=== PATIENT | male | born 1935 | race Caucasian/White ===

== ENCOUNTER 2016-12-15 10:36 | Emergency (ER) | payer MEDICARE, OTHER ==
[2016-12-15 10:58] VITALS: BP 145/83
--- NOTE | 2016-12-15 11:25 | EDM.PDOC ---
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 Pt was seen approx 2 weeks ago in the clinic and was given a zpak for presumptive bronchitis. He feels that medication did not help. Pt denies any dizziness, diaphoresis, blurred vision, chills, fevers, or vomiting. Onset: Gradual Onset Date: 12/03/16 Duration: Getting Worse Location: Reports: Chest, Upper Extremity, Right Quality: Reports: Ache Severity: Moderate Improves with: Reports: Rest Worsens with: Reports: Movement (or laying flat) Associated Symptoms: Reports: No Other Symptoms, Cough, cough w sputum, Shortness of Breath. 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 Denies: Blood Pressure Problem, Claudication, Edema, Lightheadedness, Palpitations Endocrine: Reports: Fatigue. Denies: Polydypsia, Polyuria GI/Abdominal: Reports: No Symptoms : Reports: No Symptoms Musculoskeletal: Reports: No Symptoms Skin: Reports: No Symptoms Neurological: Reports: No Symptoms Psychiatric: Reports: No Symptoms Hematologic/Lymphatic: Reports: No Symptoms Immunologic: Reports: No Symptoms ED EXAM, GENERAL - Physical Exam Exam: See Below Exam Limited By: No Limitations General Appearance: Alert, WD/WN, No Apparent Distress Eye Exam: Bilateral Eye: PERRL Head: Atraumatic, Normocephalic Neck: Normal Inspection, Supple, Non-Tender, Full Range of Motion Respiratory/Chest: Decreased Breath Sounds (right side lower lobe ), Crackles ( right side), Accessory Muscle Use. No: Respiratory Distress, Stridor, Pleural Rub, Retractions, Splinting, Prolonged Expiration Cardiovascular: Normal Peripheral Pulses, No Edema, No JVD, No Murmur, No Rub EKG INTERPRETATION EKG Date: 12/15/16 Time: 11:06 Rhythm: Other (sinus arrhythmia) [place]: LAD-Left [place] Deviation P-Wave: Present QRS: Wide ST-T: Normal QT: Normal Comparison: NA - No Prior EKG Course - Vital Signs Last Recorded V/S: Last Vital Signs Temp 36.1 C 12/15/16 10:51 Pulse 90 12/15/16 10:51 Resp 24 H 12/15/16 10:51 BP 145/83 H 12/15/16 10:51 Pulse Ox 94 L 12/15/16 10:51 - Orders/Labs/Meds Orders: Active Orders 24 hr Category Date Time Status Chest 1V Frontal [CR] Stat Exams 12/15/16 11:13 Taken Labs: Laboratory Tests 12/15/16 12/15/16 12/15/16 Range/Units 11:25 11:25 11:36 WBC 6.0 (4.0-10.0) x10^3/uL RBC 4.73 (4.5-6.0) x10^6/uL Hgb 13.6 L (14.0-18.0) g/dL Hct 41.7 (40.0-52.0) % MCV 88.2 (78.0-93.0) fL MCH 28.8 (26.0-32.0) pg MCHC 32.6 (32.0-36.0) g/dL RDW Coeff of Rashaad 14.1 (10.0-15.0) % Plt Count 277 (130-400) x10^3/uL Neut % (Auto) 69.4 (50.0-80.0) % Lymph % (Auto) 13.1 L (25.0-50.0) % [place] % (Auto) 11.3 H (2.0-11.0) % Eos % (Auto) 5.5 H (0.0-4.0) % Baso % (Auto) 0.7 (0.2-1.2) % Sodium 141 (136-145) mmol/L Potassium 4.1 (3.5-5.1) mmol/L Chloride 105 (98-107) mmol/L Carbon Dioxide 32 (21-32) mmol/L BUN 20 H (7-18) mg/dL Creatinine 1.0 (0.70-1.30) mg/dL Est Cr Clr Drug Dosing 59.90 mL/min Estimated GFR (MDRD) > 60 Glucose 92 (74-106) mg/dL Calcium 8.6 (8.5-10.1) mg/dL Corrected Calcium 9.56 (8.5-10.1) mg/dL Total Bilirubin 0.3 (0.2-1.0) mg/dL AST 14 L (15-37) U/L ALT 17 (16-63) U/L Alkaline Phosphatase 89 (46-116) U/L Creatine Kinase 85 (39-308) U/L Creatine Kinase Index TNP CK-MB (CK-2) TNP POC Troponin I 0.00 (0.00-0.08) ng/mL NT-Pro-B Natriuret Pep 167 (<=450) pg/mL Total Protein 7.2 (6.4-8.2) g/dL Albumin 2.8 L (3.4-5.0) g/dL Globulin 4.4 Albumin/Globulin Ratio 0.64 Meds: Medications Discontinued Medications Generic Name Dose Route Start Last Admin Trade Name Freq PRN Reason Stop Dose Admin Doxycycline Hyclate 100 mg 12/15/16 12:11 Vibramycin PO 12/15/16 12:12 ONETIME ONE Departure - Departure Time of Disposition: 12:02 Disposition: Home, Self-Care 01 Condition: Good Clinical Impression: Pneumonia Qualifiers: Pneumonia type: due to unspecified organism Laterality: right Lung location: lower lobe of lung Qualified Code(s): J18.1 - Lobar pneumonia, unspecified organism - Discharge Information Prescriptions: Doxycycline [Vibramycin] 100 mg PO Q12HR 14 Days #28 tablet Instructions: Community-Acquired Pneumonia, Adult, [id number], Shortness of Breath, [id number] Referrals: Mirna Solano DO [Primary Care Provider] - 3 Days Forms: ED Department Discharge Care Plan Goals: Pt is advised to take medications as prescribed Sleep with head elevated for the next couple days to help support his SOB If the SOB gets worse or develops chest pain he is advised to report to the ER immediately Take medications with food and drink plenty of water If fever or discomfort is present pt is advised to take Tylenol or Ibuprofen as needed. Education provided at the bedside Follow up with PCP in 3 days - My Orders Last 24 Hours: My Active Orders 12/15/16 11:13 Chest 1V Frontal [CR] Stat - Assessment/Plan Last 24 Hours: My Active Orders 12/15/16 11:13 Chest 1V Frontal [CR] Stat
[2016-12-15 12:05] LABS: CHLORIDE,CL 105 mmol/L (98-107); SODIUM,NA 141 mmol/L (136-145)
[2016-12-15] MEDS ORDERED: Doxycycline 100 MG Cap PO ONE (12:11)
== END 2016-12-15 12:24 | disposition home or self-care (01) ==
LOC: VM.ED 10:36
DX: J18.9 Pneumonia, unspecified organism (principal)
CPT/HCPCS: 36415; 71010; 80053; 82550; 83880; 84484; 85025; 93005; 99284; 99285; A9270

== ENCOUNTER 2017-02-23 16:46 | Inpatient (IN) | payer MEDICARE, OTHER ==
[2017-02-25] MEDS: IPRATROPIUM NEB SCH ×2 (14:42→20:54)
[2017-02-25] MEDS: ALBUTEROL NEB SCH ×2 (14:42→20:54)
[2017-02-25] MEDS ORDERED: Albuterol 8 GM Inhaler INH PRN (16:40)
[2017-02-25] MEDS ORDERED: Prochlorperazine 5 MG Tab PO PRN (16:40)
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
[2017-02-25] MEDS: Potassium Chloride 20 MEQ Tab.ER PO SCH (17:43)
[2017-02-25] MEDS ORDERED: Albuterol/Ipratropium 3.0-0.5 MG/3 ML Neb Soln NEB SCH (20:00)
[2017-02-25] MEDS: Tamsulosin 0.4 MG Cap.ER PO SCH (20:54)
[2017-02-25] MEDS: Acetaminophen 325 MG Tab PO PRN (22:25)
[2017-02-26] MEDS: Acetaminophen 325 MG Tab PO PRN ×2 (04:10→20:39)
[2017-02-26] MEDS: ALBUTEROL NEB SCH ×4 (07:03→20:39)
[2017-02-26] MEDS: IPRATROPIUM NEB SCH ×4 (07:03→20:39)
[2017-02-26] MEDS ORDERED: Dexamethasone 4 MG Tab PO SCH (08:00)
[2017-02-26] MEDS ORDERED: Docusate Sodium 100 MG Cap PO SCH (08:00)
[2017-02-26] MEDS: Aspirin 81 MG Tab.EC PO SCH (08:20)
[2017-02-26] MEDS: Potassium Chloride 20 MEQ Tab.ER PO SCH ×2 (08:21→18:10)
[2017-02-26] MEDS: Folic Acid 1 MG Tab (OWN SUPPLY) PO SCH (08:21)
[2017-02-26] MEDS: Furosemide 20 MG Tab PO SCH (08:22)
[2017-02-26] MEDS: traZODone 50 MG Tab PO SCH (20:39)
[2017-02-26] MEDS: Tamsulosin 0.4 MG Cap.ER PO SCH (20:39)
[2017-02-27] MEDS: IPRATROPIUM NEB SCH ×4 (07:11→21:56)
[2017-02-27] MEDS: ALBUTEROL NEB SCH ×4 (07:11→21:56)
[2017-02-27] MEDS: Furosemide 20 MG Tab PO SCH (07:50)
[2017-02-27] MEDS: Aspirin 81 MG Tab.EC PO SCH (07:50)
[2017-02-27] MEDS: Folic Acid 1 MG Tab (OWN SUPPLY) PO SCH (07:50)
[2017-02-27] MEDS: Potassium Chloride 20 MEQ Tab.ER PO SCH (07:51)
[2017-02-27 09:22] LABS: CHLORIDE,CL 101 mmol/L (98-107); SODIUM,NA 139 mmol/L (136-145)
[2017-02-27] MEDS: oxyCODONE 5 MG Tab PO PRN ×2 (09:49→17:06)
[2017-02-27] MEDS ORDERED: Enoxaparin 40 MG/0.4 ML Syringe SUBCUT SCH (13:00)
--- NOTE | 2017-02-27 13:23 | PN ---
Progress Note for CHARLY SOLIMAN Date: 02/27/2017 Room #: VM.206 SUBJECTIVE: This is a 81-year-old with lung cancer, on swing bed after an acute stay for cellulitis versus a chemo reaction with lower extremity redness and swelling. The swelling is significantly improved. The pain is better. He still has pain off and on in his right chest wall area, which he has had since being diagnosed with lung cancer. He otherwise has been eating a 100% of his meals here, but had lost considerable weight prior. He had not been getting oxycodone but is requesting something stronger than Tylenol for his pain. He denies shortness of breath, but he continues to require oxygen. He has a Lin in place which is working. No fevers, no chills. OBJECTIVE: Vital Signs: His temperature 98, pulse 94, blood pressure 129/67, respiratory rate 19, and O2 sat of 93% on 2 L. General: He is in no acute distress. Heart: Regular rate and rhythm. Lungs: Sounds are decreased over the right base, but otherwise no crackles or wheezes. Abdomen: Nondistended, nontender. : Lin in place. Prostate exam performed. Prostate is enlarged but there are no nodules. Extremities: There is still some redness to his legs and minimal warmth. We removed the SCDs. The swelling is nearly resolved. ASSESSMENT: 1. Lung cancer stage IV, metastatic to the pleural fluid. He is status post 1 treatment with chemo. He will be evaluated in the next week for improved overall condition to see if he is a candidate for chemo again. We did lab work today, which looked good. 2. Chronic obstructive pulmonary disease, chronic without exacerbation on nebulizers. 3. Deconditioning and working with therapies. He is asking to get up and walk more with nursing in the hallways. We discussed this that we would work on that also today. 4. Moderate malnutrition due to cancer. He is eating a 100% of his meals. 5. 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 We are going to start some Remeron. 6. Urinary retention due to benign prostatic hypertrophy. He is on Flomax now. The Lin will be left in place. We will look on removing that Saturday for a voiding trial. 7. 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 His hemoglobin today is improved up to 9.5. 8. Deep vein thrombosis prophylaxis. He had been on a SCDs, but now with a stable hemoglobin, I am going to start Lovenox. PLAN: At this point, the patient is to continue swing bed cares. We will restart oxycodone for pain control. We will continue the Lin. We will start Lovenox for DVT prophylaxis. He will continue working with PT. He has declined working with OT to do ADLs. MKA: 02/27/2017 12:56:09 MODL: 02/27/2017 13:15:07 /[id number]
[2017-02-27] MEDS: traZODone 50 MG Tab PO SCH (21:56)
[2017-02-27] MEDS: Enoxaparin 40 MG/0.4 ML Syringe SUBCUT SCH (21:56)
[2017-02-27] MEDS: Tamsulosin 0.4 MG Cap.ER PO SCH (21:56)
[2017-02-27] MEDS: Mirtazapine 15 MG Tab PO SCH (21:56)
[2017-02-28] MEDS: ALBUTEROL NEB SCH ×4 (07:03→20:16)
[2017-02-28] MEDS: IPRATROPIUM NEB SCH ×4 (07:03→20:16)
[2017-02-28] MEDS: Potassium Chloride 20 MEQ Tab.ER PO SCH (07:53)
[2017-02-28] MEDS: Folic Acid 1 MG Tab (OWN SUPPLY) PO SCH (07:53)
[2017-02-28] MEDS: Aspirin 81 MG Tab.EC PO SCH (07:53)
[2017-02-28] MEDS: oxyCODONE 5 MG Tab PO PRN ×2 (07:54→16:04)
[2017-02-28] MEDS: Furosemide 20 MG Tab PO SCH (07:55)
[2017-02-28] MEDS: traZODone 50 MG Tab PO SCH (20:16)
[2017-02-28] MEDS: Tamsulosin 0.4 MG Cap.ER PO SCH (20:16)
[2017-02-28] MEDS: Mirtazapine 15 MG Tab PO SCH (20:16)
[2017-02-28] MEDS: Enoxaparin 40 MG/0.4 ML Syringe SUBCUT SCH (20:23)
[2017-03-01] MEDS: ALBUTEROL NEB SCH ×4 (07:05→19:40)
[2017-03-01] MEDS: IPRATROPIUM NEB SCH ×4 (07:05→19:40)
[2017-03-01] MEDS: oxyCODONE 5 MG Tab PO PRN ×2 (08:41→18:17)
[2017-03-01] MEDS: Aspirin 81 MG Tab.EC PO SCH (08:42)
[2017-03-01] MEDS: Acetaminophen 325 MG Tab PO PRN ×2 (08:42→18:16)
[2017-03-01] MEDS: Furosemide 20 MG Tab PO SCH (08:43)
[2017-03-01] MEDS: Potassium Chloride 20 MEQ Tab.ER PO SCH (08:43)
[2017-03-01] MEDS: Folic Acid 1 MG Tab (OWN SUPPLY) PO SCH (08:43)
--- NOTE | 2017-03-01 13:19 | PCM.SN ---
- Free Text/Narrative Note: Patient waiting to go for a walk, discussed leaving the catheter in place until Saturday and then a voiding trial after that as he was recently started on Flomax. He states he is sleeping better he is on Trazodone and Remeron. He still has a poor appetite but is eating 50 % or better for his meals. He is due for an Oncology visit and labs on Saturday. Nursing is aware.
[2017-03-01] MEDS: Mirtazapine 15 MG Tab PO SCH (19:40)
[2017-03-01] MEDS: Tamsulosin 0.4 MG Cap.ER PO SCH (19:40)
[2017-03-01] MEDS: traZODone 50 MG Tab PO SCH (19:40)
[2017-03-01] MEDS: Enoxaparin 40 MG/0.4 ML Syringe SUBCUT SCH (21:12)
[2017-03-02] MEDS: IPRATROPIUM NEB SCH ×4 (07:03→19:42)
[2017-03-02] MEDS: ALBUTEROL NEB SCH ×4 (07:03→19:42)
[2017-03-02] MEDS: Acetaminophen 325 MG Tab PO PRN ×2 (07:27→15:05)
[2017-03-02] MEDS: Folic Acid 1 MG Tab (OWN SUPPLY) PO SCH (07:28)
[2017-03-02] MEDS: Aspirin 81 MG Tab.EC PO SCH (07:28)
[2017-03-02] MEDS: Furosemide 20 MG Tab PO SCH (07:28)
[2017-03-02] MEDS: Potassium Chloride 20 MEQ Tab.ER PO SCH (07:28)
[2017-03-02] MEDS: oxyCODONE 5 MG Tab PO PRN ×2 (07:28→15:05)
[2017-03-02] MEDS: Enoxaparin 40 MG/0.4 ML Syringe SUBCUT SCH ×2 (19:41→20:45)
[2017-03-02] MEDS: Mirtazapine 15 MG Tab PO SCH (19:42)
[2017-03-02] MEDS: Tamsulosin 0.4 MG Cap.ER PO SCH (19:42)
[2017-03-02] MEDS: traZODone 50 MG Tab PO SCH (19:42)
[2017-03-03] MEDS: oxyCODONE 5 MG Tab PO PRN ×2 (06:14→17:16)
[2017-03-03] MEDS: Acetaminophen 325 MG Tab PO PRN ×2 (06:15→17:17)
[2017-03-03] MEDS: IPRATROPIUM NEB SCH ×4 (07:03→21:59)
[2017-03-03] MEDS: ALBUTEROL NEB SCH ×4 (07:03→21:59)
[2017-03-03] MEDS: Folic Acid 1 MG Tab (OWN SUPPLY) PO SCH (07:54)
[2017-03-03] MEDS: Potassium Chloride 20 MEQ Tab.ER PO SCH (07:54)
[2017-03-03] MEDS: Aspirin 81 MG Tab.EC PO SCH (07:54)
[2017-03-03] MEDS: Furosemide 20 MG Tab PO SCH (07:54)
[2017-03-03] MEDS: Enoxaparin 40 MG/0.4 ML Syringe SUBCUT SCH (21:59)
[2017-03-03] MEDS: traZODone 50 MG Tab PO SCH (22:00)
[2017-03-03] MEDS: Mirtazapine 15 MG Tab PO SCH (22:00)
[2017-03-03] MEDS: Tamsulosin 0.4 MG Cap.ER PO SCH (22:00)
[2017-03-04] MEDS: ALBUTEROL NEB SCH ×4 (06:57→20:09)
[2017-03-04] MEDS: IPRATROPIUM NEB SCH ×4 (06:57→20:09)
[2017-03-04] MEDS: Furosemide 20 MG Tab PO SCH (07:47)
[2017-03-04] MEDS: Potassium Chloride 20 MEQ Tab.ER PO SCH (07:47)
[2017-03-04] MEDS: Aspirin 81 MG Tab.EC PO SCH (07:47)
[2017-03-04] MEDS: Folic Acid 1 MG Tab (OWN SUPPLY) PO SCH (07:47)
[2017-03-04] MEDS: oxyCODONE 5 MG Tab PO PRN ×2 (07:53→17:22)
[2017-03-04] MEDS: Albuterol 0.083% 2.5 MG/3 ML Neb Soln NEB PRN (12:37)
[2017-03-04] MEDS: Acetaminophen 325 MG Tab PO PRN ×2 (17:22→21:38)
[2017-03-04] MEDS: Tamsulosin 0.4 MG Cap.ER PO SCH (20:08)
[2017-03-04] MEDS: Mirtazapine 15 MG Tab PO SCH (20:09)
[2017-03-04] MEDS: traZODone 50 MG Tab PO SCH (20:09)
[2017-03-04] MEDS: Enoxaparin 40 MG/0.4 ML Syringe SUBCUT SCH (20:17)
[2017-03-05] MEDS: oxyCODONE 5 MG Tab PO PRN ×2 (04:31→20:36)
[2017-03-05] MEDS: ALBUTEROL NEB SCH ×4 (07:13→20:35)
[2017-03-05] MEDS: IPRATROPIUM NEB SCH ×4 (07:13→20:35)
[2017-03-05] MEDS: Potassium Chloride 20 MEQ Tab.ER PO SCH (07:57)
[2017-03-05] MEDS: Folic Acid 1 MG Tab (OWN SUPPLY) PO SCH (07:57)
[2017-03-05] MEDS: Aspirin 81 MG Tab.EC PO SCH (07:58)
[2017-03-05] MEDS: Furosemide 20 MG Tab PO SCH (07:58)
[2017-03-05 09:30] LABS: CHLORIDE,CL 101 mmol/L (98-107); SODIUM,NA 138 mmol/L (136-145)
--- NOTE | 2017-03-05 09:30 | PN ---
Progress Note for CHARLY SOLIMAN Date: 03/05/2017 Room #: VM.206 SUBJECTIVE: This is a 81-year-old seen on swing bed with stage IV lung cancer, metastatic to the pleura. He states his breathing and cough are okay, but he still has some hip pain from when he fell and came into the ER, which was over a week ago. He has had a low-grade fever since yesterday. He denies any burning with urination or abdominal pain, but he has a Lin catheter in place. It would have been removed yesterday, but he was traveling to [place] for Oncology appointments, and he tells me he is not going to do any further chemo. OBJECTIVE: Vital Signs: His temperature currently is 98.3. Pulse 111, he has been up to 120. He has had tachycardia over 100 for the last several months ever since he has been diagnosed with cancer. Blood pressure 113/56, respiratory rate 22, and O2 97% on 3 L. General: He is in no acute distress. Heart: Regular rate and rhythm. Lungs: Sounds are decreased over the right base with rhonchi, otherwise left base is clear. Abdomen: Positive bowel sounds. Soft and nontender. Extremities: Warm and dry. No edema. Mental Status: Alert and orientated x3. He is eating 100% of his meals. His leg swelling that he had before is much improved. His in's and out's are matching. ASSESSMENT AND PLAN: 1. Metastatic lung cancer to the pleura, stage IV, status post one round of chemotherapy with complications of cellulitis and leg swelling. This has now improved. The patient has decided not to continue further chemo. He has also agreed to go code 2 status. 2. Chronic obstructive pulmonary disease, chronic and stable, without exacerbation. 3. Deconditioning. He is up, and he is working with therapies. 4. Deep vein thrombosis prophylaxis. He is on Lovenox. 5. Moderate malnutrition due to cancer. He is eating well. 6. 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 He is on Remeron. 7. Urinary retention due to benign prostatic hyperplasia. He has been on Flomax now for the last week. We will remove the Lin for a voiding trial. 8. 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 We will repeat a hemoglobin today. 9. Low-grade fevers. We will check a UA. We will check a white count. I am going to hold off on any x-rays, unless he has worsening lung symptoms. At this point, the patient will continue swing bed cares. He was switched over to code 3 status after discussion with him. We will try to get him to the point where he is up and moving around and able to go back home. Otherwise, if he is not, we may be looking at [facility] care or even hospice. Lab work will be done today. MKA: 03/05/2017 08:50:40 MODL: 03/05/2017 09:17:09 /[id number] MARY
[2017-03-05] MEDS: Acetaminophen 325 MG Tab PO PRN (20:35)
[2017-03-05] MEDS: Tamsulosin 0.4 MG Cap.ER PO SCH (20:35)
[2017-03-05] MEDS: Enoxaparin 40 MG/0.4 ML Syringe SUBCUT SCH (20:35)
[2017-03-05] MEDS: traZODone 50 MG Tab PO SCH (20:36)
[2017-03-05] MEDS: Mirtazapine 15 MG Tab PO SCH (20:36)
[2017-03-06] MEDS: oxyCODONE 5 MG Tab PO PRN ×4 (02:00→21:50)
[2017-03-06] MEDS: ALBUTEROL NEB SCH ×4 (07:12→21:50)
[2017-03-06] MEDS: IPRATROPIUM NEB SCH ×4 (07:12→21:50)
[2017-03-06] MEDS: Acetaminophen 325 MG Tab PO PRN ×3 (07:49→21:51)
[2017-03-06] MEDS: Potassium Chloride 20 MEQ Tab.ER PO SCH (07:50)
[2017-03-06] MEDS: Aspirin 81 MG Tab.EC PO SCH (07:50)
[2017-03-06] MEDS: Folic Acid 1 MG Tab (OWN SUPPLY) PO SCH (07:50)
[2017-03-06] MEDS: Finasteride 5 MG Tab PO SCH (08:54)
--- NOTE | 2017-03-06 17:35 | PN ---
Progress Note for CHARLY SOLIMAN Date: 03/06/2017 Room #: VM.206 SUBJECTIVE: This is a 81-year-old on swing bed recovering after an acute stay for cellulitis with complications after chemotherapy. The patient saw his oncologist earlier this week. He has declined further treatments even though they were going to give him some reduced dosing. His lab work yesterday did show his anemia to have worsened down to 7.2, but it was stable this morning at 7.3. He has a mild elevation of white count of 10.4. He had some low-grade fevers on Saturday. This afternoon, around 3:30, he spiked to 102.5 temperature. He has been coughing more, but his sputum has been white and clear. He has a known right lung mass with malignant effusion. He denies any increased shortness of breath and his oxygen saturations are actually improved, but he has been requiring oxygen, which is not new, that has been throughout his hospitalization. He also failed his voiding trial yesterday and had to have his Lin reinserted. He had a UA done that was negative for any infection. His kidney function was good yesterday. OBJECTIVE: Vital Signs: Again, T-max was at that 102.5, pulse 112, blood pressure 110/58, respiratory rate 18, O2 95% on room air. General: He is in no acute distress. Heart: Regular rate and rhythm. Lungs: Sounds show decreased air entry and crackles noted in both bases, but worse crackles in the left base and more decreased sounds over the right base. Abdomen: Nondistended, nontender. Genitalia: Penis is examined. There is some whitish drainage around the Lin. The Lin is in place. There is no redness or warmth. There is some dark to alexadnru colored urine in his Lin bag. Extremities: Warm and dry. No edema. Mental Status: He is alert and orientated x3. Overall, he does seem depressed. ASSESSMENT: 1. Fever with cough, known lung cancer. This is probably pneumonia. That is how he was initially diagnosed. I am going to empirically start him on Augmentin. We will get a chest x-ray as well. 2. Chronic obstructive pulmonary disease, chronic. He is on nebulizers. 3. Deconditioning. He is working with therapies. 4. Deep vein thrombosis prophylaxis. He is still on Lovenox. 5. 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 He is eating 100% of his meals, but he has still lost weight. 6. 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 He is on Remeron. 7. Urinary retention with benign prostatic hyperplasia. He has Lin back in place. We have him on Flomax. I am going to start him on Proscar and try another voiding trial in a week. If blood pressures come up further, I might increase Flomax also to 0.8. 8. 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 We will transfuse if hemoglobin goes below 7. I will repeat Saturday. PLAN: The patient will continue swing bed cares. We discussed that if he is declining to pursue further aggressive treatments, that he is not going to recover, he is likely not going to get better and he understands that his cancer is a terminal condition. He would like to stay here at the hospital if possible, but he did not want to talk to the community mental health social worker. I believe he was concerned about going to the pen[facility], which he absolutely opposes. I do not think he is going to be able to go home unless he has significant family support and with hospice, but at this point, he is still working with therapies. If his condition deteriorates and worsens, then he will go on full comfort cares. He does not want to be transferred back to [place] for aggressive treatments and I think that is appropriate. For now, we are going to start Augmentin. We are going to get a chest x-ray. I will repeat his lab work in a couple days. I will continue DVT prophylaxis. MKA: 03/06/2017 17:07:14 MODL: 03/06/2017 17:27:44 /[id number]
[2017-03-06] MEDS: Amoxicillin/Clavulanate K 875-125 MG Tab PO SCH ×2 (18:17→21:49)
[2017-03-06] MEDS: Nystatin Crm 30 GM Tube TOP SCH ×2 (21:48→21:51)
[2017-03-06] MEDS: Tamsulosin 0.4 MG Cap.ER PO SCH (21:49)
[2017-03-06] MEDS: traZODone 50 MG Tab PO SCH (21:50)
[2017-03-06] MEDS: Mirtazapine 15 MG Tab PO SCH (21:50)
[2017-03-07] MEDS: Enoxaparin 40 MG/0.4 ML Syringe SUBCUT SCH ×2 (00:23→20:21)
[2017-03-07] MEDS: ALBUTEROL NEB SCH ×4 (07:03→20:20)
[2017-03-07] MEDS: IPRATROPIUM NEB SCH ×4 (07:03→20:20)
[2017-03-07] MEDS: Aspirin 81 MG Tab.EC PO SCH (08:12)
[2017-03-07] MEDS: Folic Acid 1 MG Tab (OWN SUPPLY) PO SCH (08:12)
[2017-03-07] MEDS: Finasteride 5 MG Tab PO SCH (08:12)
[2017-03-07] MEDS: Nystatin Crm 30 GM Tube TOP SCH ×2 (08:13→20:20)
[2017-03-07] MEDS: Amoxicillin/Clavulanate K 875-125 MG Tab PO SCH ×2 (08:13→20:20)
[2017-03-07] MEDS: Potassium Chloride 20 MEQ Tab.ER PO SCH (08:13)
--- NOTE | 2017-03-07 09:50 | PN ---
Progress Note for CHARLY SOLIMAN Date: 03/07/2017 Room #: VM.206 SUBJECTIVE: This is a 81-year-old on swing bed with stage IV lung cancer due to some deconditioning and weakness after chemo, which resulted in bilateral leg redness and swelling. He completed some treatments for cellulitis. His leg swelling is slightly coming back. It is also tender again. He has been on Lovenox for DVT prophylaxis. He has also had SCDs when in bed. Otherwise, he had been on Lasix, but he had stopped it a few days ago due to concerns for some dehydration with poor oral intake. He also spiked a fever of 102.5 yesterday, had an x-ray showing some increase in right lung infiltrate that is where he has his known cancer. He has continuous pain in that area and does take some oxycodone. He does not feel like his cough or his breathing are any worse today. He was started on Augmentin. He has been afebrile overnight. He says to me "I did not know I had a UTI." I told him his urine was clean yesterday, no infection there, but he did have to get the Lin put back in as he was unable to void after his voiding trial. OBJECTIVE: Vital Signs: Temperature 98.6, pulse 107, blood pressure 115/61, respiratory rate 19, O2 93% on 3 L. General: He is in no acute distress. Heart: Regular rate and rhythm. Lungs: Sounds are decreased with rhonchi in both bases. No wheezing appreciated. He is on nebulizers. Extremities: Warm and dry. There is just trace edema. There is some minimal redness, but no warmth. Mental Status: He is alert and oriented x3. ASSESSMENT: 1. 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 Afebrile. We will continue to monitor. 2. Chronic obstructive pulmonary disease, chronic and stable. He will continue his nebulizers. 3. Deconditioning. He is working with therapy. 4. Deep vein thrombosis prophylaxis. He is on Lovenox. He has had SCDs. I am also going to start some Raheel stockings due to the leg swelling. 5. Leg edema. I am going to restart his Lasix. 6. 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 We will continue to encourage oral intake. He is also on supplements. 7. 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 He is on Remeron. 8. Urinary retention due to BPH. He has been on Flomax for over a week. He was started on Proscar yesterday. We will continue to monitor. We may need to increase the Flomax to 0.8 and do a voiding trial next week. 9. 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 Hemoglobin is above 7. We will repeat tomorrow, transfuse if less than 7. 10.Palliative cares for this patient as he is refusing further aggressive treatments. PLAN: At this point, discussed with patient. We will continue the oral antibiotics of Augmentin for 1 week. We will continue to monitor his clinical status. If he gets worse, we will place him on comfort cares. He would like to stay at [facility] for treatment. I feel he is too weak to go home. He is agreeable to meet with the social science research assistant today and his family. He had refused yesterday because he thought seeing her was only for the purposes of going to the retirement. SEVERINOA: 03/07/2017 08:56:21 MODL: 03/07/2017 09:15:54 /[id number]
[2017-03-07] MEDS: Furosemide 20 MG Tab PO SCH (10:42)
[2017-03-07] MEDS: Mirtazapine 15 MG Tab PO SCH (20:20)
[2017-03-07] MEDS: Tamsulosin 0.4 MG Cap.ER PO SCH (20:20)
[2017-03-07] MEDS: traZODone 50 MG Tab PO SCH (20:21)
[2017-03-08] MEDS: IPRATROPIUM NEB SCH ×4 (07:12→20:06)
[2017-03-08] MEDS: ALBUTEROL NEB SCH ×4 (07:12→20:06)
[2017-03-08 07:17] LABS: CHLORIDE,CL 100 mmol/L (98-107); SODIUM,NA 139 mmol/L (136-145)
[2017-03-08] MEDS: Amoxicillin/Clavulanate K 875-125 MG Tab PO SCH ×2 (08:14→20:07)
[2017-03-08] MEDS: Potassium Chloride 20 MEQ Tab.ER PO SCH (08:15)
[2017-03-08] MEDS: Aspirin 81 MG Tab.EC PO SCH (08:15)
[2017-03-08] MEDS: Furosemide 20 MG Tab PO SCH (08:15)
[2017-03-08] MEDS: Folic Acid 1 MG Tab (OWN SUPPLY) PO SCH (08:15)
[2017-03-08] MEDS: Acetaminophen 325 MG Tab PO PRN (08:16)
[2017-03-08] MEDS: Finasteride 5 MG Tab PO SCH (08:16)
[2017-03-08] MEDS: Nystatin Crm 30 GM Tube TOP SCH ×2 (08:17→20:07)
[2017-03-08] MEDS: predniSONE 20 MG Tab PO SCH (09:51)
--- NOTE | 2017-03-08 13:25 | PN ---
Progress Note for CHARLY SOLIMAN Date: 03/08/2017 Room #: VM.206 SUBJECTIVE: This is a 81-year-old male on swing bed due to weakness after chemotherapy for stage IV lung cancer. He had a lot of redness, pain, and swelling to his legs. We restarted Lasix and it is getting better, but it still hurts. He had ultrasound for similar symptoms on 02/16. It was negative for DVT. He has been on Lovenox for DVT prophylaxis. He does have bilateral groin lymphadenopathy, which is probably from his cancer. Otherwise, his hemoglobin did drop now below 7 to 6.8. It went down gradually. He is feeling weak. He is wanting to try a transfusion to see if it helps to give him some more strength, so he can be up and working with therapies more. He was started on Augmentin now day #3 for pneumonia. His breathing and coughing have improved, and he has been afebrile until this morning. He had a low-grade 100.3 temp. OBJECTIVE: VITAL SIGNS: Temperature 100.3, pulse 116, blood pressure 121/63, respiratory rate 20, O2 95% on 3 L. GENERAL: He is in no acute distress. HEART: Regular rate and rhythm with tachycardia. LUNGS: Sounds have diffuse scattered rhonchi throughout with some expiratory wheezing. He does have a known history of COPD. EXTREMITIES: Warm and dry. Just trace edema. He has minimal redness up the back of both shins and some at both thighs. There is no warmth, but it is tender to palpation. MENTAL STATUS: He is alert and orientated x3. PSYCH: He is mildly depressed. LAB WORK: Again, hemoglobin down to 6.8, white count up slightly to 11.6, platelets at 431, potassium 3.5, creatinine 0.7. ASSESSMENT: 1. Anemia, chronic, likely related to underlying malignancy. Discussed the risks and benefits of transfusion with the patient. He elects to proceed. We will give him 1 unit today and repeat Saturday. His symptoms are weakness and his hemoglobin is less than 7. 2. Bilateral leg swelling, redness, and tenderness. We will do another ultrasound to rule out deep venous thrombosis, but at this point, it might be just related to his lymphadenopathy. We will continue with Lovenox to prevent blood clots. If he does have a blood clot, we will switch him over to other treatments. 3. Benign prostatic hypertrophy. He is on Proscar and Flomax. We will try voiding trial next week. 4. Pneumonia. He will be on Augmentin until 03/13. 5. Chronic obstructive pulmonary disease. I am going to start him on prednisone 20 mg daily, probably to continue for 5 days to see if that helps his breathing as well. PLAN: The patient will continue swing bed cares. He is under palliative care currently, but not comfort cares. Social Work had been working with him and his family. He does not want to go to the [facility]. For now, he is still working with PT. He is on potassium replacement. MKA: 03/08/2017 12:53:38 MODL: 03/08/2017 13:20:22 /[id number] MTDD
[2017-03-08] MEDS: Enoxaparin 40 MG/0.4 ML Syringe SUBCUT SCH (20:06)
[2017-03-08] MEDS: traZODone 50 MG Tab PO SCH (20:07)
[2017-03-08] MEDS: Mirtazapine 15 MG Tab PO SCH (20:07)
[2017-03-08] MEDS: Tamsulosin 0.4 MG Cap.ER PO SCH (20:07)
[2017-03-08] MEDS: oxyCODONE 5 MG Tab PO PRN (20:09)
[2017-03-08] MEDS: Ondansetron 4 MG Tab.DIS PO PRN (20:09)
[2017-03-09] MEDS: IPRATROPIUM NEB SCH ×4 (06:59→20:47)
[2017-03-09] MEDS: ALBUTEROL NEB SCH ×4 (06:59→20:47)
[2017-03-09] MEDS: Amoxicillin/Clavulanate K 875-125 MG Tab PO SCH ×2 (08:43→20:46)
[2017-03-09] MEDS: Folic Acid 1 MG Tab (OWN SUPPLY) PO SCH (08:44)
[2017-03-09] MEDS: Furosemide 20 MG Tab PO SCH (08:44)
[2017-03-09] MEDS: Potassium Chloride 20 MEQ Tab.ER PO SCH (08:44)
[2017-03-09] MEDS: Aspirin 81 MG Tab.EC PO SCH (08:44)
[2017-03-09] MEDS: Nystatin Crm 30 GM Tube TOP SCH ×2 (08:45→20:48)
[2017-03-09] MEDS: Finasteride 5 MG Tab PO SCH (08:46)
[2017-03-09] MEDS: predniSONE 20 MG Tab PO SCH (08:46)
[2017-03-09] MEDS ORDERED: Sodium Phosphate,Monobasic/Sodium Phosphate,Dibasic Enema 133 ML Bottle RECTAL ONE (11:31)
--- NOTE | 2017-03-09 11:32 | PCM.SN ---
- Free Text/Narrative Note: Patient with significant abdominal distension and decreased bowel sounds. Has a "rock hard stool" in the rectum per nursing. Manual disimpaction was not successful by nursing staff. Will try fleet enema and reassess. Minimal improvement from enema but picture is more consistent with constipation and associated gasseous distension rather than any bowel obstruction or ileus. Will give a dose of miralax today as well. No x-rays at this time. Will monitor patient status throughout the day.
[2017-03-09] MEDS: Enoxaparin 40 MG/0.4 ML Syringe SUBCUT SCH (20:47)
[2017-03-09] MEDS: Tamsulosin 0.4 MG Cap.ER PO SCH (20:47)
[2017-03-09] MEDS: Mirtazapine 15 MG Tab PO SCH (20:47)
[2017-03-09] MEDS: traZODone 50 MG Tab PO SCH (20:47)
[2017-03-09] MEDS: Docusate Sodium 100 MG Cap PO PRN (20:52)
[2017-03-09] MEDS ORDERED: Ondansetron 4 MG/2 ML SDV IVPUSH ONE (21:51)
[2017-03-09] MEDS: Ondansetron 4 MG Tab.DIS PO PRN (21:56)
--- NOTE | 2017-03-09 22:18 | PCM.SN ---
- Free Text/Narrative Note: Called by nursing staff as patient had started vomiting. Upon arrival, now notes that he really felt like he was gagging on phlegm in his throat causing him to vomit than that he had nausea and vomiting from a GI source. He denies any abdominal pain. He has had multiple bowel movements throughout the day today. Abdomen is still distended but is much softer than earlier today. No tenderness to palpation. Patient otherwise appears in no acute distress and is stable in appearance from earlier today. Will consider repeating labs in the am depending on how he does overnight. Nursing to call for any change in status.
[2017-03-10] MEDS: IPRATROPIUM NEB SCH ×4 (06:58→20:47)
[2017-03-10] MEDS: ALBUTEROL NEB SCH ×4 (06:58→20:47)
[2017-03-10] MEDS: Folic Acid 1 MG Tab (OWN SUPPLY) PO SCH (07:24)
[2017-03-10] MEDS: Amoxicillin/Clavulanate K 875-125 MG Tab PO SCH ×2 (07:24→20:47)
[2017-03-10] MEDS: Potassium Chloride 20 MEQ Tab.ER PO SCH (07:24)
[2017-03-10] MEDS: Furosemide 20 MG Tab PO SCH (07:24)
[2017-03-10] MEDS: Aspirin 81 MG Tab.EC PO SCH (07:24)
[2017-03-10] MEDS: Finasteride 5 MG Tab PO SCH (07:25)
[2017-03-10] MEDS: predniSONE 20 MG Tab PO SCH (07:25)
[2017-03-10] MEDS: Nystatin Crm 30 GM Tube TOP SCH ×2 (07:26→20:59)
--- NOTE | 2017-03-10 10:45 | PCM.SN ---
- Free Text/Narrative Note: Feeling well this morning. Answers questions better. In no acute distress. Abdomen is distended but soft. Good bowel sounds. Reassess as needed.
[2017-03-10] MEDS: oxyCODONE 5 MG Tab PO PRN (19:03)
[2017-03-10] MEDS: Mirtazapine 15 MG Tab PO SCH (20:47)
[2017-03-10] MEDS: Enoxaparin 40 MG/0.4 ML Syringe SUBCUT SCH (20:47)
[2017-03-10] MEDS: traZODone 50 MG Tab PO SCH (20:47)
[2017-03-10] MEDS: Docusate Sodium 100 MG Cap PO PRN (20:48)
[2017-03-10] MEDS: Tamsulosin 0.4 MG Cap.ER PO SCH (20:48)
[2017-03-11] MEDS: ALBUTEROL NEB SCH ×4 (07:11→19:54)
[2017-03-11] MEDS: IPRATROPIUM NEB SCH ×4 (07:11→19:54)
[2017-03-11] MEDS: Acetaminophen 325 MG Tab PO PRN ×2 (07:44→11:56)
[2017-03-11] MEDS: Potassium Chloride 20 MEQ Tab.ER PO SCH (07:44)
[2017-03-11] MEDS: Aspirin 81 MG Tab.EC PO SCH (07:44)
[2017-03-11] MEDS: Amoxicillin/Clavulanate K 875-125 MG Tab PO SCH ×2 (07:44→19:54)
[2017-03-11] MEDS: predniSONE 20 MG Tab PO SCH (07:45)
[2017-03-11] MEDS: Folic Acid 1 MG Tab (OWN SUPPLY) PO SCH (07:45)
[2017-03-11] MEDS: Finasteride 5 MG Tab PO SCH (07:45)
[2017-03-11] MEDS: Furosemide 20 MG Tab PO SCH (07:45)
[2017-03-11] MEDS: Nystatin Crm 30 GM Tube TOP SCH ×2 (07:46→19:55)
[2017-03-11] MEDS: Nystatin Susp 100,000 Unit/ML 5 ML UD Cup PO SCH ×4 (10:05→19:54)
[2017-03-11] MEDS: oxyCODONE 5 MG Tab PO PRN (11:57)
[2017-03-11] MEDS: Polyethylene Glycol 3350 Powder 17 GM Packet PO SCH (16:49)
--- NOTE | 2017-03-11 17:56 | PN ---
Progress Note for CHARLY SOLIMAN Date: 03/11/2017 Room #: VM.206 SUBJECTIVE: This is dictation #1 on a 81-year-old, on swing bed, after chemotherapy for stage IV lung cancer. He is refusing further chemotherapy. He had some anemia last week. We gave him 1 unit of packed red blood cells. He said it gave him just a little bit more energy. He denies shortness of breath or cough. He has been on Augmentin for pneumonia. He also had constipation over the weekend, which was relieved after an enema. He has been getting about 1 oxycodone a day for right-sided chest pain related to his cancer. Otherwise, he would like to leave the Lin in a few more days. He failed a voiding trial last week. His UA was negative for infection. OBJECTIVE: Vital Signs: His temperature 97.4. He did have a temp 100.4 yesterday. Pulse 113, blood pressure 118/59, respiratory rate 24, O2 91 on 4 L. General: He is in no acute distress. Heart: Regular rate and rhythm with tachycardia. Lungs: Sounds are more clear to auscultation, but decreased over the right lung. There is no wheezing noted today. Abdomen: Mildly distended. Positive bowel sounds. It is soft, it is nontender. Extremities: Warm and dry. He has some redness and trace edema. There is tenderness to palpation. He states they are not putting on my PARVIZ stockings but nursing states he is having pain and refuses them. He has been on Lovenox for DVT prophylaxis and his ultrasound today was negative for DVT. LABORATORY DATA: Lab work today does show his hemoglobin did not drop because it was 6.8. He received transfusion today, it is 7.3. White count is 9.3, platelets is 365. Otherwise, it should be noted, he also developed some sores on his tongue. They are scabbed and dried up today. He has had them about 2 days. ASSESSMENT: 1. Tongue sores. He is over a month out now from his chemo. We will try treating him with nystatin. He has been on prednisone also. He will complete that on the for a chronic obstructive pulmonary disease. 2. Anemia, related to his lung cancer. We will repeat hemoglobin . 3. Bilateral leg swelling. He is negative for deep vein thrombosis. He does have lymphadenopathy in his groins by imaging, probably from his cancer. 4. Benign prostatic hypertrophy. He will have a voiding trial later in the week. We will continue Proscar and increase Flomax to 0.8 mg. 5. Pneumonia. He will complete Augmentin on 03/13 for postobstructive pneumonia. 6. Chronic obstructive pulmonary disease with exacerbation. He will continue nebulizers and prednisone. He will complete that on 03/13. PLAN: The patient will continue on swing bed. We will schedule him on MiraLAX. He is working with Collections Manager. His brother will be his POA. He would like to stay here for long-term care. His overall prognosis is guarded and he may even need to go on hospice as he is refusing any further aggressive treatments. MKA: 03/11/2017 16:10:31 MODL: 03/11/2017 16:58:21 /[id number]
[2017-03-11] MEDS: Acetaminophen 325 MG Tab PO SCH (19:54)
[2017-03-11] MEDS: Tamsulosin 0.4 MG Cap.ER PO SCH (19:54)
[2017-03-11] MEDS: traZODone 50 MG Tab PO SCH (19:55)
[2017-03-11] MEDS: Mirtazapine 15 MG Tab PO SCH (19:55)
[2017-03-11] MEDS: Enoxaparin 40 MG/0.4 ML Syringe SUBCUT SCH ×2 (19:57→20:07)
[2017-03-12] MEDS: ALBUTEROL NEB SCH ×4 (07:11→20:27)
[2017-03-12] MEDS: IPRATROPIUM NEB SCH ×4 (07:11→20:27)
[2017-03-12] MEDS: Nystatin Susp 100,000 Unit/ML 5 ML UD Cup PO SCH ×4 (07:47→20:28)
[2017-03-12] MEDS: Polyethylene Glycol 3350 Powder 17 GM Packet PO SCH (07:47)
[2017-03-12] MEDS: Folic Acid 1 MG Tab (OWN SUPPLY) PO SCH (07:48)
[2017-03-12] MEDS: Amoxicillin/Clavulanate K 875-125 MG Tab PO SCH ×2 (07:48→20:26)
[2017-03-12] MEDS: Furosemide 20 MG Tab PO SCH (07:48)
[2017-03-12] MEDS: Finasteride 5 MG Tab PO SCH (07:48)
[2017-03-12] MEDS: Aspirin 81 MG Tab.EC PO SCH (07:48)
[2017-03-12] MEDS: Potassium Chloride 20 MEQ Tab.ER PO SCH (07:48)
[2017-03-12] MEDS: Acetaminophen 325 MG Tab PO SCH ×3 (07:49→20:27)
[2017-03-12] MEDS: predniSONE 20 MG Tab PO SCH (07:49)
[2017-03-12] MEDS: Nystatin Crm 30 GM Tube TOP SCH (07:49)
[2017-03-12] MEDS: oxyCODONE 5 MG Tab PO PRN (12:12)
[2017-03-12] MEDS ORDERED: Fluconazole 100 MG Tab PO ONE (12:37)
--- NOTE | 2017-03-12 12:45 | PCM.SN ---
- Free Text/Narrative Note: Patient seen to evaluate his catheter due to nursing concerns for swelling he has some redness to the head with whitish drainage has not been getting relief with the nystatin cream. He has been on Augmentin. Catheter has been working well he has pain only with cares. He refuses to let us remove the catheter today. Discussed trying lotrisone for some Balantitis and tyring a dose of Diflucan.
[2017-03-12] MEDS: Betamethasone Dipropionate/Clotrimazole 0.05-1% Crm 15 GM Tube TOP SCH ×2 (13:48→20:28)
[2017-03-12] MEDS: Tamsulosin 0.4 MG Cap.ER PO SCH (20:27)
[2017-03-12] MEDS: Mirtazapine 15 MG Tab PO SCH (20:27)
[2017-03-12] MEDS: traZODone 50 MG Tab PO SCH (20:27)
[2017-03-12] MEDS: Enoxaparin 40 MG/0.4 ML Syringe SUBCUT SCH (20:29)
[2017-03-13] MEDS: ALBUTEROL NEB SCH ×4 (07:04→19:41)
[2017-03-13] MEDS: IPRATROPIUM NEB SCH ×4 (07:04→19:41)
[2017-03-13] MEDS: Betamethasone Dipropionate/Clotrimazole 0.05-1% Crm 15 GM Tube TOP SCH ×2 (08:39→19:41)
[2017-03-13] MEDS: Polyethylene Glycol 3350 Powder 17 GM Packet PO SCH (08:39)
[2017-03-13] MEDS: Nystatin Susp 100,000 Unit/ML 5 ML UD Cup PO SCH ×4 (08:39→19:41)
[2017-03-13] MEDS: Aspirin 81 MG Tab.EC PO SCH (08:39)
[2017-03-13] MEDS: Amoxicillin/Clavulanate K 875-125 MG Tab PO SCH ×2 (08:40→19:40)
[2017-03-13] MEDS: Potassium Chloride 20 MEQ Tab.ER PO SCH (08:40)
[2017-03-13] MEDS: Folic Acid 1 MG Tab (OWN SUPPLY) PO SCH (08:40)
[2017-03-13] MEDS: predniSONE 20 MG Tab PO SCH (08:40)
[2017-03-13] MEDS: Finasteride 5 MG Tab PO SCH (08:40)
[2017-03-13] MEDS: Acetaminophen 325 MG Tab PO SCH ×3 (08:41→19:41)
[2017-03-13] MEDS: Furosemide 20 MG Tab PO SCH (08:41)
[2017-03-13] MEDS: oxyCODONE 5 MG Tab PO PRN ×2 (08:41→17:29)
[2017-03-13] MEDS: Docusate Sodium 100 MG Cap PO PRN (17:29)
[2017-03-13] MEDS: traZODone 50 MG Tab PO SCH (19:41)
[2017-03-13] MEDS: Tamsulosin 0.4 MG Cap.ER PO SCH (19:41)
[2017-03-13] MEDS: Mirtazapine 15 MG Tab PO SCH (19:41)
[2017-03-13] MEDS: Enoxaparin 40 MG/0.4 ML Syringe SUBCUT SCH (19:42)
[2017-03-14] MEDS: Enoxaparin 40 MG/0.4 ML Syringe SUBCUT SCH ×2 (02:19→20:49)
[2017-03-14] MEDS: ALBUTEROL NEB SCH ×4 (07:06→20:48)
[2017-03-14] MEDS: IPRATROPIUM NEB SCH ×4 (07:06→20:48)
[2017-03-14] MEDS: Aspirin 81 MG Tab.EC PO SCH (07:36)
[2017-03-14] MEDS: Finasteride 5 MG Tab PO SCH (07:36)
[2017-03-14] MEDS: Acetaminophen 325 MG Tab PO SCH ×3 (07:36→20:48)
[2017-03-14] MEDS: Folic Acid 1 MG Tab (OWN SUPPLY) PO SCH (07:36)
[2017-03-14] MEDS: Potassium Chloride 20 MEQ Tab.ER PO SCH (07:36)
[2017-03-14] MEDS: Furosemide 20 MG Tab PO SCH (07:36)
[2017-03-14] MEDS: Polyethylene Glycol 3350 Powder 17 GM Packet PO SCH (07:37)
[2017-03-14] MEDS: Docusate Sodium 100 MG Cap PO PRN (07:37)
[2017-03-14] MEDS: Nystatin Susp 100,000 Unit/ML 5 ML UD Cup PO SCH ×4 (07:37→20:49)
[2017-03-14] MEDS: Betamethasone Dipropionate/Clotrimazole 0.05-1% Crm 15 GM Tube TOP SCH ×2 (07:37→20:48)
[2017-03-14] MEDS: Tamsulosin 0.4 MG Cap.ER PO SCH (20:48)
[2017-03-14] MEDS: Mirtazapine 15 MG Tab PO SCH (20:49)
[2017-03-14] MEDS: traZODone 50 MG Tab PO SCH (20:49)
[2017-03-15] MEDS: oxyCODONE 5 MG Tab PO PRN (02:58)
[2017-03-15] MEDS: ALBUTEROL NEB SCH ×4 (07:17→20:02)
[2017-03-15] MEDS: IPRATROPIUM NEB SCH ×4 (07:17→20:02)
[2017-03-15] MEDS: Furosemide 20 MG Tab PO SCH (09:23)
[2017-03-15] MEDS: Potassium Chloride 20 MEQ Tab.ER PO SCH (09:23)
[2017-03-15] MEDS: Aspirin 81 MG Tab.EC PO SCH (09:23)
[2017-03-15] MEDS: Acetaminophen 325 MG Tab PO SCH ×3 (09:23→20:03)
[2017-03-15] MEDS: Folic Acid 1 MG Tab (OWN SUPPLY) PO SCH (09:23)
[2017-03-15] MEDS: Finasteride 5 MG Tab PO SCH (09:23)
[2017-03-15] MEDS: Polyethylene Glycol 3350 Powder 17 GM Packet PO SCH (09:24)
[2017-03-15] MEDS: Nystatin Susp 100,000 Unit/ML 5 ML UD Cup PO SCH ×4 (09:24→19:56)
[2017-03-15] MEDS: Betamethasone Dipropionate/Clotrimazole 0.05-1% Crm 15 GM Tube TOP SCH ×2 (09:24→20:03)
[2017-03-15] MEDS: Enoxaparin 40 MG/0.4 ML Syringe SUBCUT SCH (20:00)
[2017-03-15] MEDS: Mirtazapine 15 MG Tab PO SCH (20:03)
[2017-03-15] MEDS: traZODone 50 MG Tab PO SCH (20:03)
[2017-03-15] MEDS: Tamsulosin 0.4 MG Cap.ER PO SCH (20:03)
--- NOTE | 2017-03-15 21:46 | PCM.SN ---
- Free Text/Narrative Note: Flomax stopped he failed his 2nd voiding trial and prefers to keep the mejia in at this point. He will remain under skilled cares but will likely go to non skilled Saturday due to a planteau with PT almost certainly due to his stage IV lung cancer for which he declines further aggressive treatments. [facility] and will be placed on full comfort cares if needed.
[2017-03-16] MEDS: ALBUTEROL NEB SCH ×4 (07:12→20:33)
[2017-03-16] MEDS: IPRATROPIUM NEB SCH ×4 (07:12→20:33)
[2017-03-16] MEDS: Aspirin 81 MG Tab.EC PO SCH (07:34)
[2017-03-16] MEDS: oxyCODONE 5 MG Tab PO PRN ×2 (07:35→15:53)
[2017-03-16] MEDS: Polyethylene Glycol 3350 Powder 17 GM Packet PO SCH (07:35)
[2017-03-16] MEDS: Folic Acid 1 MG Tab (OWN SUPPLY) PO SCH (07:36)
[2017-03-16] MEDS: Acetaminophen 325 MG Tab PO SCH ×4 (07:37→20:33)
[2017-03-16] MEDS: Furosemide 20 MG Tab PO SCH (07:37)
[2017-03-16] MEDS: Potassium Chloride 20 MEQ Tab.ER PO SCH (07:37)
[2017-03-16] MEDS: Finasteride 5 MG Tab PO SCH (07:37)
[2017-03-16] MEDS: Nystatin Susp 100,000 Unit/ML 5 ML UD Cup PO SCH ×5 (07:39→20:33)
[2017-03-16] MEDS: Betamethasone Dipropionate/Clotrimazole 0.05-1% Crm 15 GM Tube TOP SCH ×2 (07:39→20:33)
[2017-03-16] MEDS: Enoxaparin 40 MG/0.4 ML Syringe SUBCUT SCH (20:33)
[2017-03-16] MEDS: traZODone 50 MG Tab PO SCH (20:33)
[2017-03-16] MEDS: Mirtazapine 15 MG Tab PO SCH (20:34)
[2017-03-17] MEDS: Albuterol 0.083% 2.5 MG/3 ML Neb Soln NEB PRN (00:03)
[2017-03-17] MEDS: oxyCODONE 5 MG Tab PO PRN ×4 (00:04→22:53)
[2017-03-17] MEDS: ALBUTEROL NEB SCH ×4 (07:17→20:42)
[2017-03-17] MEDS: IPRATROPIUM NEB SCH ×4 (07:17→20:42)
[2017-03-17] MEDS: Nystatin Susp 100,000 Unit/ML 5 ML UD Cup PO SCH ×4 (08:18→20:42)
[2017-03-17] MEDS: Furosemide 20 MG Tab PO SCH (08:19)
[2017-03-17] MEDS: Finasteride 5 MG Tab PO SCH (08:20)
[2017-03-17] MEDS: Aspirin 81 MG Tab.EC PO SCH (08:20)
[2017-03-17] MEDS: Potassium Chloride 20 MEQ Tab.ER PO SCH (08:20)
[2017-03-17] MEDS: Folic Acid 1 MG Tab (OWN SUPPLY) PO SCH (08:20)
[2017-03-17] MEDS: Acetaminophen 325 MG Tab PO SCH ×3 (08:21→20:43)
[2017-03-17] MEDS: Betamethasone Dipropionate/Clotrimazole 0.05-1% Crm 15 GM Tube TOP SCH ×2 (08:21→20:43)
[2017-03-17] MEDS: Polyethylene Glycol 3350 Powder 17 GM Packet PO SCH (08:21)
[2017-03-17] MEDS: Mirtazapine 15 MG Tab PO SCH (20:42)
[2017-03-17] MEDS: traZODone 50 MG Tab PO SCH (20:42)
[2017-03-17] MEDS: Enoxaparin 40 MG/0.4 ML Syringe SUBCUT SCH (20:42)
[2017-03-18] MEDS: IPRATROPIUM NEB SCH ×4 (07:14→20:49)
[2017-03-18] MEDS: ALBUTEROL NEB SCH ×4 (07:14→20:49)
[2017-03-18] MEDS: Furosemide 20 MG Tab PO SCH (08:16)
[2017-03-18] MEDS: Polyethylene Glycol 3350 Powder 17 GM Packet PO SCH (08:17)
[2017-03-18] MEDS: Aspirin 81 MG Tab.EC PO SCH (08:17)
[2017-03-18] MEDS: Potassium Chloride 20 MEQ Tab.ER PO SCH (08:17)
[2017-03-18] MEDS: Folic Acid 1 MG Tab (OWN SUPPLY) PO SCH (08:17)
[2017-03-18] MEDS: Betamethasone Dipropionate/Clotrimazole 0.05-1% Crm 15 GM Tube TOP SCH (08:17)
[2017-03-18] MEDS: Acetaminophen 325 MG Tab PO SCH ×3 (08:17→20:49)
[2017-03-18] MEDS: Finasteride 5 MG Tab PO SCH (08:17)
[2017-03-18] MEDS: oxyCODONE 5 MG Tab PO PRN ×2 (15:44→22:07)
[2017-03-18] MEDS: traZODone 50 MG Tab PO SCH (20:48)
[2017-03-18] MEDS: Mirtazapine 15 MG Tab PO SCH (20:49)
[2017-03-18] MEDS: MIRTAZAPINE 15 MG PO SCH (20:51)
[2017-03-19] MEDS ORDERED: [UNRECOGNIZED DRUG - OTHER] PO PRN
[2017-03-19] MEDS ORDERED: ONDANSETRON 4 MG PO PRN
[2017-03-19] MEDS ORDERED: PROCHLORPERAZINE 10 MG PO PRN
--- NOTE | 2017-03-19 04:10 | DISCH ---
PRIMARY DISCHARGE DIAGNOSES: 1. Metastatic stage IV lung cancer to the pleura with increasing weakness. 2. Acute on chronic anemia due to cancer, status post 1 unit of packed red blood cells for hemoglobin less than 7. 3. Urinary retention, failed 2 voiding trials. The patient prefers to keep the Lin in. 4. An episode of cellulitis with bilateral leg swelling, ruled out for deep venous thrombosis. He does have bilateral groin lymphadenopathy, probably due to cancer. 5. Benign prostatic hyperplasia. 6. Pneumonia, treated with a course of Augmentin on 03/13/2017 for post obstructive pneumonia. 7. Chronic obstructive pulmonary disease with exacerbation, treated with prednisone and nebs on 03/13/2017, improved. 8. 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 9. Severe malnutrition due to cancer with poor oral intake. REASON FOR ADMISSION: On admission, this 81-year-old was transferred from [place] after he had had some leg swelling and redness after his first treatment of chemo. The patient was weak and deconditioned. He was working with therapy, but he did not improve to the point where he could return home. He absolutely refused to go to the alf and recommendations were made that he would be staying in [facility] on non-skilled swing bed. He otherwise had his pain controlled with oxycodone during his stay was over the right chest wall where his cancer is. He was using it up to 4 times a day. He was having some constipation on discharge and did have some problems throughout his stay, but 2 bowel movements were charted within the last 24 hours. Otherwise, he was given Lovenox throughout his entire stay on skilled care. He had no acute bleeding problems, but did have gradual decreases in hemoglobin down to 6.8. He received 1 unit, but it did not significantly improve his energy levels. Hemoglobin on 03/14/2017 was 7.6 and I discussed with him that we would not be checking it further. The patient understands his guarded prognosis. We have been doing palliative cares for him and will continue. He states he wants to fight till the end, but refuses further chemo and is a code level 3. DISCHARGE PLANS AND INSTRUCTIONS: He is going over to non-skilled swing bed for further supportive cares. We will continue oxycodone for pain relief. We will continue a bowel regimen. We will continue his nebulizers and oxygen. We will continue his catheter for his comfort as he has failed 2 voiding trials and we will discontinue all bladder medications. PHYSICAL EXAMINATION: Discharge Vital Signs: Temp 97.9, pulse 115, blood pressure 132/65, respiratory rate 19, and O2 of 95% on 4 L. General: He is in no acute distress. Heart: Regular rate and rhythm with tachycardia. Lungs: Rhonchi over the right base. Left lung has some scattered wheezes. Abdomen: Distended, but positive bowel sounds. Nontender. Extremities: Warm and dry. No edema, but they are dry and scaly. Mental Status: He is alert and orientated x3. MKA: 03/18/2017 08:48:48 MODL: 03/19/2017 04:00:08 /[id number]
[2017-03-19] MEDS: ALBUTEROL NEB SCH ×4 (07:18→20:25)
[2017-03-19] MEDS: IPRATROPIUM NEB SCH ×4 (07:18→20:25)
[2017-03-19] MEDS: Folic Acid 1 MG Tab (OWN SUPPLY) PO SCH (08:08)
[2017-03-19] MEDS: Polyethylene Glycol 3350 Powder 17 GM Packet PO SCH (08:08)
[2017-03-19] MEDS: Acetaminophen 325 MG Tab PO SCH ×3 (08:08→20:35)
[2017-03-19] MEDS: Aspirin 81 MG Tab.EC PO SCH (08:08)
[2017-03-19] MEDS: POTASSIUM 10 MEQ PO SCH (08:09)
[2017-03-19] MEDS: Furosemide 20 MG (OWN SUPPLY) PO SCH (08:09)
[2017-03-19] MEDS: OXYCODONE 5 MG PO PRN ×2 (15:39→23:22)
[2017-03-19] MEDS: MIRTAZAPINE 15 MG PO SCH (20:28)
[2017-03-19] MEDS: traZODone 50 MG Tab (OWN SUPPLY) PO SCH (20:29)
[2017-03-20] MEDS: ALBUTEROL NEB SCH ×4 (07:06→20:08)
[2017-03-20] MEDS: IPRATROPIUM NEB SCH ×4 (07:06→20:08)
[2017-03-20] MEDS: Aspirin 81 MG Tab.EC PO SCH (09:16)
[2017-03-20] MEDS: Furosemide 20 MG (OWN SUPPLY) PO SCH (09:16)
[2017-03-20] MEDS: Folic Acid 1 MG Tab (OWN SUPPLY) PO SCH (09:16)
[2017-03-20] MEDS: Acetaminophen 325 MG Tab PO SCH ×3 (09:17→20:11)
[2017-03-20] MEDS: POTASSIUM 10 MEQ PO SCH (09:18)
[2017-03-20] MEDS: Polyethylene Glycol 3350 Powder 17 GM Packet PO SCH (09:19)
[2017-03-20] MEDS: OXYCODONE 5 MG PO PRN (20:00)
[2017-03-20] MEDS: traZODone 50 MG Tab (OWN SUPPLY) PO SCH (20:08)
[2017-03-20] MEDS: MIRTAZAPINE 15 MG PO SCH (20:08)
[2017-03-21] MEDS: OXYCODONE 5 MG PO PRN ×2 (02:15→20:12)
[2017-03-21] MEDS: IPRATROPIUM NEB SCH ×4 (07:05→20:13)
[2017-03-21] MEDS: ALBUTEROL NEB SCH ×4 (07:05→20:13)
[2017-03-21] MEDS: POTASSIUM 10 MEQ PO SCH (11:17)
[2017-03-21] MEDS: Folic Acid 1 MG Tab (OWN SUPPLY) PO SCH (11:18)
[2017-03-21] MEDS: Furosemide 20 MG (OWN SUPPLY) PO SCH (11:18)
[2017-03-21] MEDS: Aspirin 81 MG Tab.EC PO SCH (11:19)
[2017-03-21] MEDS: Acetaminophen 325 MG Tab PO SCH ×3 (11:19→20:12)
[2017-03-21] MEDS: Polyethylene Glycol 3350 Powder 17 GM Packet PO SCH (11:20)
[2017-03-21] MEDS: traZODone 50 MG Tab (OWN SUPPLY) PO SCH (20:12)
[2017-03-21] MEDS: MIRTAZAPINE 15 MG PO SCH (20:12)
[2017-03-22] MEDS: OXYCODONE 5 MG PO PRN ×2 (03:13→17:04)
[2017-03-22] MEDS: IPRATROPIUM NEB SCH ×4 (07:04→19:50)
[2017-03-22] MEDS: ALBUTEROL NEB SCH ×4 (07:04→19:50)
[2017-03-22] MEDS: Acetaminophen 325 MG Tab PO SCH ×3 (07:29→19:50)
[2017-03-22] MEDS: POTASSIUM 10 MEQ PO SCH (07:29)
[2017-03-22] MEDS: Aspirin 81 MG Tab.EC PO SCH (07:29)
[2017-03-22] MEDS: Folic Acid 1 MG Tab (OWN SUPPLY) PO SCH (07:29)
[2017-03-22] MEDS: Polyethylene Glycol 3350 Powder 17 GM Packet PO SCH (07:30)
[2017-03-22] MEDS: Furosemide 20 MG (OWN SUPPLY) PO SCH (07:30)
[2017-03-22] MEDS: MIRTAZAPINE 15 MG PO SCH (19:50)
[2017-03-22] MEDS: traZODone 50 MG Tab (OWN SUPPLY) PO SCH (19:50)
[2017-03-23] MEDS: ALBUTEROL NEB SCH ×4 (06:41→21:00)
[2017-03-23] MEDS: IPRATROPIUM NEB SCH ×4 (06:41→21:00)
[2017-03-23] MEDS: Aspirin 81 MG Tab.EC PO SCH (08:19)
[2017-03-23] MEDS: Furosemide 20 MG (OWN SUPPLY) PO SCH (08:19)
[2017-03-23] MEDS: Acetaminophen 325 MG Tab PO SCH ×3 (08:19→21:00)
[2017-03-23] MEDS: POTASSIUM 10 MEQ PO SCH (08:19)
[2017-03-23] MEDS: Folic Acid 1 MG Tab (OWN SUPPLY) PO SCH (08:20)
[2017-03-23] MEDS: Polyethylene Glycol 3350 Powder 17 GM Packet PO SCH (08:20)
[2017-03-23] MEDS: OXYCODONE 5 MG PO PRN ×2 (08:21→17:05)
[2017-03-23] MEDS: MIRTAZAPINE 15 MG PO SCH (21:00)
[2017-03-23] MEDS: traZODone 50 MG Tab (OWN SUPPLY) PO SCH (21:00)
[2017-03-24] MEDS: ALBUTEROL NEB SCH ×4 (07:02→20:27)
[2017-03-24] MEDS: IPRATROPIUM NEB SCH ×4 (07:02→20:27)
[2017-03-24] MEDS: Acetaminophen 325 MG Tab PO SCH ×3 (08:14→20:28)
[2017-03-24] MEDS: Folic Acid 1 MG Tab (OWN SUPPLY) PO SCH (08:14)
[2017-03-24] MEDS: Aspirin 81 MG Tab.EC PO SCH (08:14)
[2017-03-24] MEDS: Polyethylene Glycol 3350 Powder 17 GM Packet PO SCH (08:15)
[2017-03-24] MEDS: POTASSIUM 10 MEQ PO SCH (08:15)
[2017-03-24] MEDS: Furosemide 20 MG (OWN SUPPLY) PO SCH (08:15)
[2017-03-24] MEDS: OXYCODONE 5 MG PO PRN ×2 (12:57→20:28)
[2017-03-24] MEDS: MIRTAZAPINE 15 MG PO SCH (20:28)
[2017-03-24] MEDS: traZODone 50 MG Tab (OWN SUPPLY) PO SCH (20:28)
[2017-03-25] MEDS: IPRATROPIUM NEB SCH ×4 (07:07→20:56)
[2017-03-25] MEDS: ALBUTEROL NEB SCH ×4 (07:07→20:56)
[2017-03-25] MEDS: Acetaminophen 325 MG Tab PO SCH ×3 (08:02→20:59)
[2017-03-25] MEDS: Aspirin 81 MG Tab.EC PO SCH (08:02)
[2017-03-25] MEDS: OXYCODONE 5 MG PO PRN ×3 (08:03→20:58)
[2017-03-25] MEDS: POTASSIUM 10 MEQ PO SCH (08:03)
[2017-03-25] MEDS: Folic Acid 1 MG Tab (OWN SUPPLY) PO SCH (08:04)
[2017-03-25] MEDS: Furosemide 20 MG (OWN SUPPLY) PO SCH (08:04)
[2017-03-25] MEDS: Polyethylene Glycol 3350 Powder 17 GM Packet PO SCH (08:08)
--- NOTE | 2017-03-25 17:33 | PN ---
Progress Note for CHARLY SOLIMAN Date: 03/22/2017 Room #: VM.219 SUBJECTIVE: This is a 81-year-old, on palliative care on swing bed after he completed skilled care with therapies. Overall, his condition is declining. He does have metastatic lung cancer to the pleura. He currently still has some shortness of breath requiring 4 L of oxygen. He has not had any worsening of cough. He has been sleeping more. He is still able to swallow pills. He feels his pain is controlled. He does have oxycodone available. PHYSICAL EXAMINATION: Vital Signs: Otherwise, objectively, his temperature has been afebrile. He is 98.6, pulse 114, blood pressure 133/55, respiratory rate 24, O2 of 95% on 4 L. General: He is in no acute distress. Heart: Regular rate and rhythm with tachycardia. Lungs: Lung sounds decreased air entry bilaterally with rhonchi noted over the right base. Abdomen: Soft and nontender. Extremities: Warm and dry. He has no edema. He does have some dryness and scaling to his legs. Mental Status: He is alert. He is orientated x3. Psychiatric: His mood is down. ASSESSMENT AND PLAN: 1. Metastatic lung cancer, stage IV, to the pleura with pleural effusion. 2. Urinary retention, likely due to benign prostatic hypertrophy. Lin left in place per patient preference and comfort. 3. 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 No further blood draws are planned. 4. Recent pneumonia, treated with Augmentin. 5. Chronic obstructive pulmonary disease, stable without exacerbation. PLAN: At this point, the patient will continue on swing bed cares for palliative cares. He will continue with oral oxycodone. If swallowing becomes an issue, we will make adjustments. He will transition over to comfort care measures per code status, but we will not institute full comfort care orders unless the patient needs something for secretions or nausea. The patient's [id number] and brother were in the room. We discussed his overall care and prognosis. We are all in agreement to proceed with comfort measures. MKA: 03/25/2017 16:55:38 MODL: 03/25/2017 17:15:53 /[id number]
[2017-03-25] MEDS: traZODone 50 MG Tab (OWN SUPPLY) PO SCH (20:56)
[2017-03-25] MEDS: MIRTAZAPINE 15 MG PO SCH (20:56)
[2017-03-26] MEDS: OXYCODONE 5 MG PO PRN ×3 (03:00→20:50)
[2017-03-26] MEDS: Aspirin 81 MG Tab.EC PO SCH (14:01)
[2017-03-26] MEDS: Furosemide 20 MG (OWN SUPPLY) PO SCH (14:01)
[2017-03-26] MEDS: ALBUTEROL NEB SCH ×3 (14:01→20:40)
[2017-03-26] MEDS: Folic Acid 1 MG Tab (OWN SUPPLY) PO SCH (14:01)
[2017-03-26] MEDS: Polyethylene Glycol 3350 Powder 17 GM Packet PO SCH (14:01)
[2017-03-26] MEDS: IPRATROPIUM NEB SCH ×3 (14:01→20:40)
[2017-03-26] MEDS: POTASSIUM 10 MEQ PO SCH (14:02)
[2017-03-26] MEDS: Acetaminophen 325 MG Tab PO SCH ×2 (14:02→20:49)
[2017-03-26] MEDS: Albuterol/Ipratropium 3.0-0.5 MG/3 ML Neb Soln INH PRN (20:49)
[2017-03-26] MEDS: MIRTAZAPINE 15 MG PO SCH (20:49)
[2017-03-26] MEDS: traZODone 50 MG Tab (OWN SUPPLY) PO SCH (20:49)
[2017-03-27] MEDS: Albuterol/Ipratropium 3.0-0.5 MG/3 ML Neb Soln INH PRN (02:59)
[2017-03-27] MEDS: OXYCODONE 5 MG PO PRN ×2 (03:00→20:30)
[2017-03-27] MEDS: ALBUTEROL NEB SCH ×4 (06:54→20:29)
[2017-03-27] MEDS: IPRATROPIUM NEB SCH ×4 (06:54→20:29)
--- NOTE | 2017-03-27 09:52 | PN ---
Progress Note for CHARLY SOLIMAN Date: 03/27/2017 Room #: VM.219 SUBJECTIVE: This is a 81-year-old on comfort cares on swing bed due to metastatic lung cancer to the pleura. The patient tells me he is going to beat this, but then in the next sentence he says "you know, I yesterday." He did think the nurse was God. He has been afebrile. His pain has been under better control. There was a request from nursing that he is needing more pain pills during the night, so I increased the frequency to 1 to 2 pills and every 3 hours. He says his pain is controlled. He is not having any coughing or shortness of breath. He is getting out of bed very minimally. He is just using the commode. He has no abdominal pain, but he also mentions about when they are doing hernia checks, "I tried to see if that was catheter cares," but he was not making much sense about this. Overall, he did receive just 2 doses of oxycodone yesterday for a total of 15 mg. OBJECTIVE: VITAL SIGNS: His temperature is 98.5, pulse 108, blood pressure 132/70, respiratory rate 19, and O2 of 98 on 4 L. GENERAL: He is in no acute distress. HEART: Regular rate and rhythm. LUNGS: Sounds are decreased over the right base, actually they are absent. He has some scattered rhonchi over the anterior chest in the upper left and upper right quadrants. ABDOMEN: Mildly distended but nontender. EXTREMITIES: Warm and dry. No edema. MENTAL STATUS: He is alert. He seems to recognize me. ASSESSMENT AND PLAN: 1. Metastatic lung cancer stage IV with malignant pleural effusion, on swing bed and comfort cares. At this point, he is getting pain control. If he needs anything more for secretions and nausea, we will go ahead and order that. 2. Urinary retention due to benign prostatic hyperplasia. Lin is left in for comfort. 3. 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 No further transfusions or monitoring recommended. 4. Recent pneumonia, treated with Augmentin. 5. Chronic obstructive pulmonary disease, stable without exacerbation. His albuterol inhaler was changed to nebulizers for ease of use. 6. Mild leg edema after chemo. He is on small doses of Lasix. He seems to be tolerating that. We will continue with the same. The plan at this point, the patient will continue on comfort measures on swing bed until he passes on. MKA: 03/27/2017 09:10:24 MODL: 03/27/2017 09:33:12 /[id number]
[2017-03-27] MEDS: Folic Acid 1 MG Tab (OWN SUPPLY) PO SCH (12:09)
[2017-03-27] MEDS: Polyethylene Glycol 3350 Powder 17 GM Packet PO SCH (12:09)
[2017-03-27] MEDS: Aspirin 81 MG Tab.EC PO SCH (12:09)
[2017-03-27] MEDS: Acetaminophen 325 MG Tab PO SCH ×3 (12:09→20:30)
[2017-03-27] MEDS: Furosemide 20 MG (OWN SUPPLY) PO SCH (12:09)
[2017-03-27] MEDS: POTASSIUM 10 MEQ PO SCH (12:09)
[2017-03-27] MEDS: MIRTAZAPINE 15 MG PO SCH (20:30)
[2017-03-27] MEDS: traZODone 50 MG Tab (OWN SUPPLY) PO SCH (20:30)
[2017-03-28] MEDS: OXYCODONE 5 MG PO PRN ×3 (04:41→20:20)
[2017-03-28] MEDS: IPRATROPIUM NEB SCH ×4 (06:50→20:21)
[2017-03-28] MEDS: ALBUTEROL NEB SCH ×4 (06:50→20:21)
[2017-03-28] MEDS: Folic Acid 1 MG Tab (OWN SUPPLY) PO SCH (07:46)
[2017-03-28] MEDS: Aspirin 81 MG Tab.EC PO SCH (07:46)
[2017-03-28] MEDS: Acetaminophen 325 MG Tab PO SCH ×3 (07:46→20:19)
[2017-03-28] MEDS: POTASSIUM 10 MEQ PO SCH (07:47)
[2017-03-28] MEDS: Furosemide 20 MG (OWN SUPPLY) PO SCH (07:47)
[2017-03-28] MEDS: Polyethylene Glycol 3350 Powder 17 GM Packet PO SCH (07:47)
[2017-03-28] MEDS: traZODone 50 MG Tab (OWN SUPPLY) PO SCH (20:20)
[2017-03-28] MEDS: MIRTAZAPINE 15 MG PO SCH (20:20)
[2017-03-29] MEDS: OXYCODONE 5 MG PO PRN ×5 (05:23→23:36)
[2017-03-29] MEDS: IPRATROPIUM NEB SCH ×4 (07:14→23:35)
[2017-03-29] MEDS: ALBUTEROL NEB SCH ×4 (07:14→23:35)
[2017-03-29] MEDS: POTASSIUM 10 MEQ PO SCH (08:41)
[2017-03-29] MEDS: Furosemide 20 MG (OWN SUPPLY) PO SCH (08:41)
[2017-03-29] MEDS: Folic Acid 1 MG Tab (OWN SUPPLY) PO SCH (08:41)
[2017-03-29] MEDS: Polyethylene Glycol 3350 Powder 17 GM Packet PO SCH (08:42)
[2017-03-29] MEDS: Acetaminophen 325 MG Tab PO SCH ×3 (09:09→23:35)
[2017-03-29] MEDS: Aspirin 81 MG Tab.EC PO SCH (09:14)
[2017-03-29] MEDS: traZODone 50 MG Tab (OWN SUPPLY) PO SCH (23:35)
[2017-03-29] MEDS: MIRTAZAPINE 15 MG PO SCH (23:35)
[2017-03-30] MEDS: OXYCODONE 5 MG PO PRN ×4 (05:09→19:46)
[2017-03-30] MEDS: IPRATROPIUM NEB SCH ×4 (07:08→19:43)
[2017-03-30] MEDS: ALBUTEROL NEB SCH ×4 (07:08→19:43)
[2017-03-30] MEDS: Aspirin 81 MG Tab.EC PO SCH (08:43)
[2017-03-30] MEDS: Folic Acid 1 MG Tab (OWN SUPPLY) PO SCH (08:44)
[2017-03-30] MEDS: POTASSIUM 10 MEQ PO SCH (08:44)
[2017-03-30] MEDS: Acetaminophen 325 MG Tab PO SCH ×3 (08:44→19:49)
[2017-03-30] MEDS: Polyethylene Glycol 3350 Powder 17 GM Packet PO SCH (08:45)
[2017-03-30] MEDS: Furosemide 20 MG (OWN SUPPLY) PO SCH (08:45)
[2017-03-30] MEDS: Morphine 2 MG/ML Syringe SUBCUT PRN ×2 (14:44→18:51)
[2017-03-30] MEDS: traZODone 50 MG Tab (OWN SUPPLY) PO SCH (19:45)
[2017-03-30] MEDS: MIRTAZAPINE 15 MG PO SCH (19:45)
[2017-03-31] MEDS: OXYCODONE 5 MG PO PRN ×4 (00:55→21:16)
[2017-03-31] MEDS: IPRATROPIUM NEB SCH ×4 (07:00→21:14)
[2017-03-31] MEDS: ALBUTEROL NEB SCH ×4 (07:00→21:14)
[2017-03-31] MEDS: Aspirin 81 MG Tab.EC PO SCH (07:48)
[2017-03-31] MEDS: Polyethylene Glycol 3350 Powder 17 GM Packet PO SCH (07:48)
[2017-03-31] MEDS: Furosemide 20 MG (OWN SUPPLY) PO SCH (07:48)
[2017-03-31] MEDS: POTASSIUM 10 MEQ PO SCH (07:48)
[2017-03-31] MEDS: Folic Acid 1 MG Tab (OWN SUPPLY) PO SCH (07:48)
[2017-03-31] MEDS: Acetaminophen 325 MG Tab PO SCH ×3 (07:48→21:18)
[2017-03-31] MEDS: Morphine 2 MG/ML Syringe SUBCUT PRN (07:52)
[2017-03-31] MEDS: Atropine 1% Ophth Soln 5 ML BOTTLE SL PRN ×2 (17:59→21:18)
[2017-03-31] MEDS: MIRTAZAPINE 15 MG PO SCH (21:18)
[2017-03-31] MEDS: traZODone 50 MG Tab (OWN SUPPLY) PO SCH (21:18)
[2017-04-01] MEDS: OXYCODONE 5 MG PO PRN ×2 (02:42→07:44)
[2017-04-01] MEDS: Morphine 2 MG/ML Syringe SUBCUT PRN ×4 (06:00→20:41)
[2017-04-01] MEDS: ALBUTEROL NEB SCH ×4 (06:59→20:47)
[2017-04-01] MEDS: IPRATROPIUM NEB SCH ×4 (06:59→20:47)
[2017-04-01] MEDS: POTASSIUM 10 MEQ PO SCH (07:43)
[2017-04-01] MEDS: Folic Acid 1 MG Tab (OWN SUPPLY) PO SCH (07:43)
[2017-04-01] MEDS: Acetaminophen 325 MG Tab PO SCH ×3 (07:43→20:41)
[2017-04-01] MEDS: Furosemide 20 MG (OWN SUPPLY) PO SCH (07:43)
[2017-04-01] MEDS: Polyethylene Glycol 3350 Powder 17 GM Packet PO SCH (07:44)
[2017-04-01] MEDS: Aspirin 81 MG Tab.EC PO SCH (07:44)
[2017-04-01] MEDS: Atropine 1% Ophth Soln 5 ML BOTTLE SL PRN (07:48)
[2017-04-01] MEDS: MIRTAZAPINE 15 MG PO SCH (20:39)
[2017-04-01] MEDS: traZODone 50 MG Tab (OWN SUPPLY) PO SCH (20:40)
[2017-04-02] MEDS: Morphine 2 MG/ML Syringe SUBCUT PRN ×5 (00:05→23:55)
[2017-04-02] MEDS: Atropine 1% Ophth Soln 5 ML BOTTLE SL PRN ×3 (00:05→23:54)
[2017-04-02] MEDS: IPRATROPIUM NEB SCH ×4 (07:10→20:36)
[2017-04-02] MEDS: ALBUTEROL NEB SCH ×4 (07:10→20:36)
[2017-04-02] MEDS: Acetaminophen 325 MG Tab PO SCH ×3 (08:09→20:37)
[2017-04-02] MEDS: Aspirin 81 MG Tab.EC PO SCH (08:10)
[2017-04-02] MEDS: OXYCODONE 5 MG PO PRN (08:10)
[2017-04-02] MEDS: Folic Acid 1 MG Tab (OWN SUPPLY) PO SCH (08:11)
[2017-04-02] MEDS: POTASSIUM 10 MEQ PO SCH (08:11)
[2017-04-02] MEDS: Polyethylene Glycol 3350 Powder 17 GM Packet PO SCH (08:12)
[2017-04-02] MEDS: Furosemide 20 MG (OWN SUPPLY) PO SCH (08:12)
[2017-04-02] MEDS ORDERED: LORazepam 1 MG Tab PO PRN (09:25)
[2017-04-02] MEDS ORDERED: MORPHINE 2 MG SUBCUT PRN (09:55)
[2017-04-02] MEDS ORDERED: Morphine 2 MG/ML Syringe SUBCUT ONE (11:45)
[2017-04-02] MEDS ORDERED: LORazepam 1 MG Tab PO ONE (11:45)
[2017-04-02] MEDS: Morphine Oral Concentrate 20 MG/ML 30 ML Bottle SL SCH ×3 (11:52→20:40)
[2017-04-02] MEDS ORDERED: Morphine Oral Concentrate 20 MG/ML 30 ML Bottle SL SCH (12:00)
--- NOTE | 2017-04-02 12:52 | PN ---
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 He continues to have the right-sided chest pain. He is up, he is conversing with me this morning. He has been getting 10 mg of oxycodone 4 times a day and also over the weekend started with subcutaneous morphine. He got a total of 22 mg. He was a little bit restless during the night. He does not have any Ativan ordered. He was also having more secretions and is now getting sublingual atropine. He is still swallowing taking his pills. He has some short of breath. He is on oxygen. He is coughing some. He is delirious and what he is saying does not always make sense, but he seems to recognize me. Otherwise, he has been having bowel movements yesterday. He has been eating, but only about 50% of meals. OBJECTIVE: Vital Signs: His temperature 98.6, pulse 114, blood pressure 113/73, respiratory rate 16, and O2 of 92% on 4 L. General: He is in no acute distress. Heart: Regular rate and rhythm. Lungs: Sounds are decreased and absent over the right base. Abdomen: Nondistended, nontender. Mental Status: He is alert. He opens his eyes, but his sentences do not always make sense. He does seem to answer "yes" or "no" appropriately. ASSESSMENT AND PLAN: 1. Stage IV lung cancer metastatic to the pleura on end of life cares. At this point, we will switch him over to sublingual morphine. We will stop his oxycodone. We will leave subcutaneous available, but he is swallowing, so we will reserve that for when he is unable to swallow. I will also have some p.r.n. Ativan available if needed for agitation and anxiety. 2. Urinary retention. Lin is in place. Nursing says that is working well. The patient states that it is uncomfortable at times, but he wants to leave it in. 3. 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 4. Previous pneumonias, treated with Augmentin, probably postobstructive. 5. Chronic obstructive pulmonary disease, stable without exacerbation. He does have nebulizers available. PLAN: At this point, the patient will continue comfort measures. He is on about 108 morphine equivalents per day for comfort measures. We converted that over to 15 mg q.i.d. of oral morphine with 15 mg available q.4 hours p.r.n. We will make adjustment to his pain management as needed. I am also going to stop his daily Lasix due to poor oral intake. If leg swelling becomes an issue, we will restart it. MKA: 04/02/2017 11:47:58 MODL: 04/02/2017 12:42:34 /[id number] MTDD
[2017-04-02] MEDS: traZODone 50 MG Tab (OWN SUPPLY) PO SCH (20:37)
[2017-04-02] MEDS: LORAZEPAM 1 MG PO PRN (20:38)
[2017-04-02] MEDS: MIRTAZAPINE 15 MG PO SCH (20:38)
[2017-04-03] MEDS: ALBUTEROL NEB SCH ×4 (07:07→20:00)
[2017-04-03] MEDS: IPRATROPIUM NEB SCH ×4 (07:07→20:00)
[2017-04-03] MEDS: Polyethylene Glycol 3350 Powder 17 GM Packet PO SCH (09:30)
[2017-04-03] MEDS: Aspirin 81 MG Tab.EC PO SCH (09:32)
[2017-04-03] MEDS: POTASSIUM 10 MEQ PO SCH (09:32)
[2017-04-03] MEDS: Acetaminophen 325 MG Tab PO SCH ×3 (09:32→20:00)
[2017-04-03] MEDS: Morphine Oral Concentrate 20 MG/ML 30 ML Bottle SL SCH ×4 (09:33→20:01)
[2017-04-03] MEDS: Folic Acid 1 MG Tab (OWN SUPPLY) PO SCH (09:33)
[2017-04-03] MEDS: MIRTAZAPINE 15 MG PO SCH (20:01)
[2017-04-03] MEDS: traZODone 50 MG Tab (OWN SUPPLY) PO SCH (20:01)
[2017-04-04] MEDS: Morphine Oral Concentrate 20 MG/ML 30 ML Bottle SL PRN ×2 (00:33→04:33)
[2017-04-04] MEDS: ALBUTEROL NEB SCH ×4 (07:32→20:17)
[2017-04-04] MEDS: IPRATROPIUM NEB SCH ×4 (07:32→20:17)
[2017-04-04] MEDS: Aspirin 81 MG Tab.EC PO SCH (08:42)
[2017-04-04] MEDS: Acetaminophen 325 MG Tab PO SCH ×3 (08:42→20:18)
[2017-04-04] MEDS: Folic Acid 1 MG Tab (OWN SUPPLY) PO SCH (08:43)
[2017-04-04] MEDS: POTASSIUM 10 MEQ PO SCH (08:43)
[2017-04-04] MEDS: Morphine Oral Concentrate 20 MG/ML 30 ML Bottle SL SCH ×4 (08:44→20:17)
[2017-04-04] MEDS: MIRTAZAPINE 15 MG PO SCH (20:17)
[2017-04-04] MEDS: traZODone 50 MG Tab (OWN SUPPLY) PO SCH (20:17)
[2017-04-05] MEDS: Morphine Oral Concentrate 20 MG/ML 30 ML Bottle SL PRN (03:34)
[2017-04-05] MEDS: IPRATROPIUM NEB SCH ×3 (06:56→14:43)
[2017-04-05] MEDS: ALBUTEROL NEB SCH ×3 (06:56→14:43)
[2017-04-05] MEDS: POTASSIUM 10 MEQ PO SCH (07:52)
[2017-04-05] MEDS: Folic Acid 1 MG Tab (OWN SUPPLY) PO SCH (07:52)
[2017-04-05] MEDS: Acetaminophen 325 MG Tab PO SCH ×3 (07:53→21:49)
[2017-04-05] MEDS: Aspirin 81 MG Tab.EC PO SCH (07:53)
[2017-04-05] MEDS: Morphine Oral Concentrate 20 MG/ML 30 ML Bottle SL SCH ×4 (07:55→21:29)
[2017-04-05] MEDS: LORAZEPAM 1 MG PO PRN (16:55)
[2017-04-05] MEDS: Albuterol/Ipratropium 3.0-0.5 MG/3 ML Neb Soln NEB SCH (21:29)
[2017-04-05] MEDS: MIRTAZAPINE 15 MG PO SCH (21:42)
[2017-04-05] MEDS: Atropine 1% Ophth Soln 5 ML BOTTLE SL PRN (21:43)
--- NOTE | 2017-04-05 21:50 | PN ---
Progress Note for CHARLY SOLIMAN Date: 04/05/2017 Room #: VM.219 SUBJECTIVE: This is a 81-year-old on end-of-life cares on swing bed due to metastatic lung cancer to the pleura. The patient has been getting regular morphine solution 15 mg q.i.d. sublingual. He is tolerating that. We have not been using the subcu as it was quite uncomfortable for him and he is swallowing okay. His [id number] was in the room, and he was doing some abnormal breathing, so we came in and assessed him. He was having a lot of pain whenever we touched him, especially the feet. He did a little bit of shaking, but did not have seizure-like activity. He has been hallucinating more. He has not recently received any Ativan, but did just receive some morphine at around 4:00 p.m., about hour prior to my assessments. He has been getting a couple of extra doses of morphine per day. He seems to be resting comfortably. OBJECTIVE: He is still using oxygen. Sats have dropped now to 86%. ASSESSMENT AND PLAN: 1. End-of-life cares on swing bed for a patient with stage IV lung cancer, metastatic to the pleura. We will continue the sublingual morphine. I think the dosing right now is adequate. If he starts using some more p.r.n. dosing, we can increase his scheduled dose. Otherwise, we will consider putting in an IV or another subcu line, but definitely we will do that if he is unable to swallow. We will give some Ativan to help with his restlessness. 2. Urinary retention. Lin is in place. 3. 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 4. Chronic obstructive pulmonary disease with previous pneumonia. He is on oxygen. PLAN: At this point, discussed with the patient and his family at the bedside his goal of care is comfort. We will continue with the sublingual morphine, place an IV or subcu line if needed. We will use the p.r.n. Ativan and continue to use the atropine for secretions. Overall, he seems to be declining which is anticipated. We will stop his trazodone for sleep as he is sleeping most of the day. We will stop his folic acid and aspirin. MKA: 04/05/2017 18:33:43 MODL: 04/05/2017 18:53:13 /[id number]
[2017-04-06 05:37] VITALS: BP 92/46
[2017-04-06] MEDS: Albuterol/Ipratropium 3.0-0.5 MG/3 ML Neb Soln NEB SCH ×3 (07:56→20:37)
[2017-04-06] MEDS: Morphine Oral Concentrate 20 MG/ML 30 ML Bottle SL SCH ×4 (09:39→20:37)
[2017-04-06] MEDS: Acetaminophen 325 MG Tab PO SCH ×3 (09:42→20:16)
[2017-04-06] MEDS: LORAZEPAM 1 MG PO PRN (17:48)
[2017-04-06] MEDS: MIRTAZAPINE 15 MG PO SCH (20:16)
[2017-04-06] MEDS: Atropine 1% Ophth Soln 5 ML BOTTLE SL PRN (20:39)
--- NOTE | 2017-04-08 11:10 | DISCH ---
SUMMARY: Date of non-skilled admission for end of life care is 03/18/2017. DATE OF : 04/07/2017. Date of original admission for skilled swing bed would be 02/25/2017. PRIMARY CAUSE OF : 1. 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 2. Urinary retention. 3. 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 4. Underlying chronic obstructive pulmonary disease. 5. 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 6. Moderate malnutrition related to cancer. 7. Chest pain related to cancer. 8. Recurrent pneumonias related to obstruction from cancer. REASON FOR ADMISSION: On the date of admission, this 81-year-old male who had originally come to swing bed after an acute hospital stay in [place] due to complications including leg swelling and infection from his 1 and only chemo treatment was deconditioned. He had made the decision not to pursue any further treatments, but did want to continue with skilled PT to see if he was improved to the point where he could return home. Unfortunately, he continued to decline. He became weaker. He became more bed-bound. He was always able to eat and drink and take liquid medications and was maintained on oral morphine. He did get some subcu morphine intermittently when he was unable to tolerate p.o. He was also started on atropine for secretions and overall declined significantly in the last week. He was last assessed by myself on the with family at bedside. He appeared to be comfortable, but was having shaking like activity, at times Ativan was recommended for any agitation. He seemed to have tenderness to palpation of his feet and was on morphine for that. Otherwise, the patient peacefully. This was an expected as he was receiving end of life cares on swing bed. MKA: 04/07/2017 11:02:56 MODL: 04/08/2017 11:03:38 /[id number]
== END 2017-04-07 02:40 | disposition expired | DRG 556 ==
LOC: VM.MS 02-25 13:42
PROVIDERS: ADMIT Internal Medicine; ATTEND Internal Medicine
PROC: 30233N1 Transfusion of Nonautologous Red Blood Cells into Peripheral Vein, Percutaneous Approach (ICD-10-PCS; principal; 2017-03-08)
DX: M62.81 Muscle weakness (generalized) (principal); C34.91 Malignant neoplasm of unspecified part of right bronchus or lung; J91.0 Malignant pleural effusion; E46 Unspecified protein-calorie malnutrition; J44.1 Chronic obstructive pulmonary disease with (acute) exacerbation; H40.9 Unspecified glaucoma; E78.00 Pure hypercholesterolemia, unspecified; Z87.891 Personal history of nicotine dependence; D63.0 Anemia in neoplastic disease; K59.00 Constipation, unspecified; R14.0 Abdominal distension (gaseous); N48.1 Balanitis; Z51.5 Encounter for palliative care; R59.1 Generalized enlarged lymph nodes; F43.20 Adjustment disorder, unspecified; G89.3 Neoplasm related pain (acute) (chronic); N40.1 Benign prostatic hyperplasia with lower urinary tract symptoms; R33.8 Other retention of urine; Z87.01 Personal history of pneumonia (recurrent); Z88.8 Allergy status to other drugs, medicaments and biological substances; Z79.82 Long term (current) use of aspirin; Z79.899 Other long term (current) drug therapy
CPT/HCPCS: 36415; 36430; 51702; 71010; 80048; 80053; 81001; 85025; 86850; 86900; 86901; 86920; 86922; 93971-50; 94640; 94760; 97110-GP; 97116-GP; 97161-GP; 97165-GO; 97530-GP; A9270-GY; J1650; J2270; J7620-GY; P9016